=== PATIENT | male | born 1970 | race Two or more races ===

== ENCOUNTER 2024-10-02 21:05 | Emergency (ER) | payer OTHER ==
[~2024-10-02] VITALS: Ht 188 cm; Wt 115.2 kg
[2024-10-02] MEDS ORDERED: LANTUS SOL100 UNIT/1 SQ (21:24)
[2024-10-02] MEDS ORDERED: COZAAR100 MG PO (21:24)
[2024-10-02] MEDS ORDERED: ATORVASTATIN CA10 MG PO (21:25)
[2024-10-03] MEDS ORDERED: KETOROLAC TROMETHAMINE 60 MG VIAL IM STA (01:34)
[2024-10-03] MEDS ORDERED: ACETAMINOPHEN 500 MG GEL..CAP PO STA (01:35)
[2024-10-03 02:31] LABS: HEMATOCRIT 43.9 % (39.0-48.0); HEMOGLOBIN 15.4 g/dL (13-16.00); MEAN CELL VOLUME 94.7 fL (80.0-100.00); MEAN CORPUSCULAR HEMOGLOBIN 33.2 pg (27.00-32.0); MEAN CORPUSCULAR HGB CONC 35.1 g/dl (32.0-36.0); PLATELET COUNT 194 K/uL (150-450); RED BLOOD COUNT 4.64 M/uL (4.00-6.00); RED CELL DISTRIBUTION WIDTH 12.8 % (11.5-14.5)
== END 2024-10-03 03:40 | disposition home or self-care (01) ==
LOC: ER 21:07
DX: B34.9 Viral infection, unspecified (principal); R53.81 Other malaise; Z20.822 Contact with and (suspected) exposure to COVID-19; Z88.0 Allergy status to penicillin